=== PATIENT | female | born 1975 | race Caucasian/White ===

== ENCOUNTER 2018-06-02 11:20 | Emergency (ER) | payer MEDICAID, OTHER ==
[2018-06-02 11:25] VITALS: BMI 23.3
--- NOTE | 2018-06-02 12:35 | C.PDOC ---
History Of Present Illness 42 year old female with PMHx of chronic sinusitis and nasal polyps presents to the ED complaining of migraine exacerbation for one week. Reports she previously received a shot of Reglan and Toradol at her primary doctor's office but it only works sometimes. Notes light sensitivity, nausea, and headache. Symptoms are similar to prior headaches. Time Seen by Provider: 06/02/18 11:57 Chief Complaint (Nursing): Dizziness/Lightheaded History Per: Patient History/Exam Limitations: no limitations Onset/Duration Of Symptoms: Days Current Symptoms Are (Timing): Still Present Associated Symptoms: Photophobia, Nausea Past Medical History Reviewed: Historical Data, Nursing Documentation, Vital Signs Vital Signs: Last Vital Signs Temp 97.6 F 06/02/18 11:24 Pulse 87 06/02/18 11:24 Resp 18 06/02/18 11:24 BP 114/85 06/02/18 11:24 Pulse Ox 100 06/02/18 11:24 - Medical History PMH: Depression, Fractures (Left 2nd rib and clavicle), HTN, Migraine Denies: Chronic Kidney Disease Other Surgeries: Hx of surgeries - [facility] Procedures GROUP PSYCHOTHERAPY (12/11/16) INDIVIDUAL PSYCHOTHERAPY, COGNITIVE-BEHAVIORAL (12/11/16) INJECT/INFUSE NEC (02/26/14) INSERTION OF INFUSION DEV INTO R FEMOR VEIN, PERC APPROACH (12/02/16) INTRODUCTION OF SERUM/TOX/VACCINE INTO MUSCLE, PERC APPROACH (12/02/16) LAPAROSCOP LYSIS-ADHES OVA,FALLOP TUBE (02/24/14) LAPAROSCOP UNILAT SALPINGO-OOPHORECTOMY (02/24/14) LAPAROSCOPIC ROBOTIC ASSISTED PROCEDURE (02/24/14) RESPIRATORY VENTILATION, GREATER THAN 96 CONSECUTIVE HOURS (12/02/16) Family History: States: No Known Family Hx - Social History Hx Tobacco Use: No Hx Alcohol Use: No Hx Substance Use: No - Immunization History Hx Tetanus Toxoid Vaccination: Yes Hx Influenza Vaccination: No Hx Pneumococcal Vaccination: Yes Review Of Systems Except As Marked, All Systems Reviewed And Found Negative. Constitutional: Negative for: Fever, Chills Eyes: Positive for: Other (light sensitivity ) Cardiovascular: Negative for: Chest Pain Respiratory: Negative for: Shortness of Breath Gastrointestinal: Positive for: Nausea. Negative for: Vomiting, Abdominal Pain, Diarrhea Musculoskeletal: Negative for: Neck Pain Neurological: Positive for: Headache Physical Exam - Physical Exam Appears: Non-toxic, Other (moderate distress ) Skin: Warm, Dry Head: Normacephalic Eye(s): bilateral: Photophobia (mild ) Ear(s): Bilateral: Normal Nose: Normal Oral Mucosa: Moist Neck: Normal ROM, Supple Chest: Symmetrical Cardiovascular: Rhythm Regular Respiratory: No Rales, No Rhonchi, No Wheezing Extremity: Bilateral: Atraumatic, Normal Color And Temperature, Normal ROM Neurological/Psych: Oriented x3, Normal Speech ED Course And Treatment O2 Sat by Pulse Oximetry: 100 (RA) Pulse Ox Interpretation: Normal Progress - Re-Evaluation Re-evaluation Note: 06/02/18 14:12 MILD IMPROVE NEURO INTACT. WILL DOSE DEPAKOTE, DEX 06/02/18 15:33 njrx reviewed. monthly REFILL FOR CLONAZEPAM, OCC GABAPENTIN. LAST NARCOTIC RX 10/11/17 06/02/18 16:00 PS IMPROVE SP DEPAKOTE, DEX. PS MULT PRIOR HEAD CT, [facility]UROLOG[facility], ER, ENT AND PMD FOR [place] AND SINUSITIS. LAST HEAD CT LAST YEAR. PS KNOWN NASAL POLYPS, CHRONIC SINUSITIS. PT OFFERED HEAD CT BUT ADVISED NEED FOR OUTPT SINUS IMAGING, ENT EVAL. ADVISED HEADACHE LIKELY RELATED TO SINUS DISEASE. PS PREV GIVEN PERCOCET FOR SIM INTENSITY [place] "AND IT'S THE ONLY THING THAT WORKS". ADVISED OF DEPT NARCOTIC POLICY. VOICES UNDERSTANDING OF THE PLAN AND AGREES W JF. ENT, NEURO REFERRAL. FAMILY @ BEDSIDE. WILL GIVE PERCOCET RX, ADVISED CONCERN FOR MEDICATION SIDE EFFECT IF DOSE NOW. ADVISED TO TAKE AT BEDTIME IF PERSIST [place]. - Data Reviewed Data Reviewed: Old records Medical Decision Making Medical Decision Making: Plan - Tylenol 975mg PO - Toradol 30mg IVP - Reglan 10mg IVp - IV fluids Disposition Counseled Patient/Family Regarding: Diagnosis, Need For Followup - Disposition Referrals: YOUR,PMD [Other] Presley Painting MD [Staff Provider] - Lennox Fish MD [Staff Provider] - Marlon Ariza MD [Staff Provider] - Disposition: HOME/ ROUTINE Disposition Time: 16:08 Condition: IMPROVED Prescriptions: oxyCODONE/Acetaminophen [Percocet 5/325 mg Tab] 1 ea PO QID #8 tab Prochlorperazine [Compazine Rectal Supp] 25 mg RC TID #15 sup Instructions: Chronic Sinusitis Forms: [facility] (Bengali), Work Excuse - Clinical Impression Clinical Impression: Chronic sinusitis, Migraine - Scribe Statement The provider has reviewed the documentation as recorded by the Scribe Maggy Jeff All medical record entries made by the Baironibe were at my direction and personally dictated by me. I have reviewed the chart and agree that the record accurately reflects my personal performance of the history, physical exam, medical decision making, and the department course for this patient. I have also personally directed, reviewed, and agree with the discharge instructions and d isposition.
[2018-06-02] MEDS ORDERED: Magnesium Sulfate 1 gm in D5W 1 GM/100 ML BAG IVPB STA (12:36)
[2018-06-02] MEDS ORDERED: Sodium Chloride 0.9% 1,000 ML IV STA (12:36)
[2018-06-02] MEDS ORDERED: Magnesium Sulfate 1 gm in D5W 1 GM/100 ML BAG IVPB ONE (12:45)
[2018-06-02] MEDS ORDERED: Dexamethasone 4 mg/1 ml IVP STA (14:11)
[2018-06-02] MEDS ORDERED: Dexamethasone 4 mg/1 ml ONE (14:20)
[2018-06-02 16:15] VITALS: BP 118/81; PULSE 91; RESP 18; TEMP 98.5
[2018-06-02 16:16] VITALS: O2SAT 100
== END 2018-06-02 16:51 | disposition home or self-care (01) ==
LOC: C.ER 11:20
DX: J32.9 Chronic sinusitis, unspecified (principal); G43.909 Migraine, unspecified, not intractable, without status migrainosus; I10 Essential (primary) hypertension
CPT/HCPCS: 96365; 96367; 96375; 99285; J1100; J1885; J2765; J3475; J7030